=== PATIENT | male | born 2000 | race Two or more races ===

== ENCOUNTER 2025-09-20 12:47 | Emergency (ER) | payer SELFPAY ==
--- NOTE | 2025-09-20 13:17 | EDNOTE_ITS ---
ED General RME/HPI General Chief complaint: Syncope / Near Syncope Stated complaint: BLACKING OUT TODAY, DIAPHORETIC Time Seen by Provider: 09/20/25 13:10 Arrival date/time: 09/20/25 12:47 CC: Nausea, blacking out HPI patient had 2 blackouts in the last 6 hours, but family member was stating the patient was feeling not right , yesterday. Patient has an episode of blacking out 1 month ago currently patient is awake alert [place] denies any nausea lightheadedness or dizziness. Patient was sat up in the bed during the interview heart rate increased from 70-90. Patient states he has not been drinking much in the last 3 days also has had a mild amount of diarrhea. No other family members ill. Patient denies chest pain shortness of breath blurred vision seeing spots or double vision nausea vomiting or diarrhea at this particular time. Related Data Previous Rx's ?Medication ?Instructions ?Recorded erythromycin 5 mg/gram (0.5 %) eye 0.5 inch ophthalmic (eye) BID 7 03/21/20 ointment days #3.5 grams Allergies Allergy/AdvReac Type Severity Reaction Status Date / Time No Known Allergies Allergy Verified 09/20/25 12:49 Review of Systems Review of Systems Narrative Review of Systems: GEN: No fever, no chills, no weight loss EYES: No discharge, no visual changes, no pain HEENT: No ear pain, no congestion, no sore throat PULM: No shortness of breath, no cough, no congestion CV: No chest pain, no dyspnea on exertion, no palpitations GI: No nausea, no vomiting, no diarrhea, no pain, no constipation : No frequency, no urgency, no dysuria MUSC/SKEL: No joint pain, no back pain SKIN: No rash PSYCH: No hallucinations, no depression HEME/LYMPH: No easy bleeding or bruising tendencies NEURO: No weakness, no headache Past Medical History Past Medical History CARDIAC: Negative Congestive Heart Failure RESPIRATORY: Negative Chronic Obstructive Pulmonary Disease (COPD) GENITOURINARY: Negative Renal Disease ENDOCRINE: Negative Diabetes Mellitus Type 1 or Diabetes Mellitus Type 2 Surgical History SURGICAL: Positive Nose Surgery Social History SMOKING STATUS: Never smoker ED Exam Narrative Physical exam: [General: Not in any acute distress Head normocephalic HEENT: Eyes: Pupils are PERRLA EOMs are intact no nystagmus mouth pink moist membranes uvula is midline swallow symmetrical phonation is normal all of the subsystems of HEENT are within acceptable limits Neck is supple nontender Chest equal chest rise nontender to palpation Respiratory: Clear to auscultation no wheezes crackles or rubs CV: Rate rhythm is regular no murmurs rubs or clicks Abdomen is soft nontender no masses positive bowel sounds all 4 quadrants Back: No CVA tenderness no spinous process tenderness from cervical spine thoracic and lumbar spine Skin: Intact no petechiae rash induration ulceration or crepitus Extremities: Moving all extremity against resistance cap refill less than 2 seconds neurosensory intact Neuro: Awake alert oriented x3 Glascow coma 15 no focal deficits] Course Course Course Narrative: At 1427, the patient is at 2 L of LR, patient is awake alert oriented is no deterioration in neurologic status no syncopal events will discharge the patient home. Quality Measures none Orders Category Date Time Status Saline [Insert IV] NOW Care 09/20/25 13:16 Active CBC Stat Lab 09/20/25 13:35 Completed CMP [Comprehensive Metabolic Panel] Stat Lab 09/20/25 13:35 Completed Drug Screen,Urine Stat Lab 09/20/25 13:16 Ordered Urinalysis Stat Lab 09/20/25 13:16 Ordered Ringers Lactated 1000 ml [Lactated Ringers] 1,000 ml Med 09/20/25 13:16 Discontinued IV 999 mls/hr Ringers Lactated 1000 ml [Lactated Ringers] 1,000 ml Med 09/20/25 13:16 Discontinued IV 999 mls/hr Discharge Plan Plan Patient Disposition: HOME (Self Care) Patient condition on transfer: Stable Prescriptions/Referrals Prescriptions/Med Rec: No Action erythromycin 5 mg/gram (0.5 %) ointment 0.5 inch OPHTHALMIC BID 7 Days Qty: 3.5 1RF Rx Instructions: 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 Problem List Clinical Impression: Syncope Patient/Caregiver Discharge Instructions Education Materials: ED Fainting, Uncertain Cause Additional Instructions: Drink plenty of fluids follow-up with your primary care doctor if there is worsening of symptoms return the emergency room for reevaluation. Print Language: Latvian Stand Alone Forms: Padmini Award Info., Work/School Release, Patient Portal Info Letter EMELINA/RICH Supervising Physician EMELINA/RICH Supervising Physician: Will Moe ENP [facility] Clinical Information Provided by: patient Medical Records reviewed [facility] Meds/Rx considered, not ordered None Labs/Rad/Tests considered, not ordered None Chronic Illness/Social Conditions which may negatively complicate care or outcome(s)-explain: None or not applicable EKG Interpretation EKG #1: EKG Interpretation: EKG performed at 1252 shows a ventricular rate of 5 6. Normal 169 QRS of 134 QTc of 388 this is sinus bradycardia. Medication Administration(s) Medication Administration History Discontinued Medications Lactated Ringer's (Lactated Ringers) 1,000 mls @ 999 mls/hr IV .Q1H1M ONE Stop: 09/20/25 14:16 Last Admin: 09/20/25 13:34 Dose: 999 mls/hr Documented By: GINA Lactated Ringer's (Lactated Ringers) 1,000 mls @ 999 mls/hr IV .Q1H1M ONE Stop: 09/20/25 14:16 Last Admin: 09/20/25 13:36 Dose: 999 mls/hr Documented By: GINA
[2025-09-20] MEDS: RINGERS LACTATED 1000 ML 1,000 ML 999 ML IV ×2 (13:34→13:36)
[2025-09-20 13:50] LABS: Basophils # (Auto) 0.0 Thou/mm3 (0.0-0.2); Basophils % (Auto) 0 % (0-2.5); Eosinophils # (Auto) 0.0 Thou/mm3 (0.0-0.5); Eosinophils % (Auto) 0 % (0-10); Hematocrit 50.2 % (41.0-53.0); Hemoglobin 17.3 g/dL (13.5-16.0); Immature Granulocytes Auto 0.06 Thou/mm3 (0.00-0.00); Lymphocytes # (Auto) 0.4 Thou/mm3 (1.0-4.8); Lymphocytes % (Auto) 4 % (10-50); Mean Corpuscular HGB Conc 34.5 g/dl (31.0-37.0); Mean Corpuscular Hemoglobin 29.8 pg (25.0-35.0); Mean Corpuscular Volume 86 fL (80-100); Monocytes # (Auto) 0.6 Thou/mm3 (0.0-0.8); Monocytes % (Auto) 6 % (0-12); Neutrophils # (Auto) 9.9 Thou/mm3 (1.8-7.7); Neutrophils % (Auto) 90 % (37-80); Nucleated Red Blood Cell # 0.00 Thou/mm3 (0.00-0.00); Nucleated Red Blood Cell % 0 /100 WBC (0); Platelet Count 250 Thou/mm3 (140-440); RDW Standard Deviation 39.7 fL (35.1-43.9); Red Blood Count 5.81 Miln/mm3 (4.50-5.90); White Blood Count 11.0 Thou/mm3 (3.8-10.6)
[2025-09-20 14:08] LABS: Alanine Aminotransferase 32 U/L (10-49); Albumin, Serum 5.4 gm/dL (3.5-5.0); Albumin/Globulin Ratio 1.9 (1.2-2.2); Alkaline Phosphatase 114 U/L (46-116); Anion Gap 13 (7-16); Aspartate Amino Transferase 31 U/L (0-34); BUN/Creatinine Ratio 10 Ratio (12-20); Bilirubin,Total 0.7 mg/dL (0.3-1.2); Blood Urea Nitrogen 10 mg/dL (9-23); Calcium 9.9 mg/dL (8.3-10.6); Calcium (Corrected) 9.9 mg/dL (8.5-10.1); Carbon Dioxide 22.0 mMol/L (20.0-31.0); Chloride 108 mMol/L (98-107); Creatinine (Component) 1.0 mg/dL (0.6-1.3); Estimated Creatinine Clearance 159.4 mL/min (>60); Globulin 2.8 gm/dL (2.3-3.5); Glucose 118 mg/dL (74-106); Osmolality,Calculated 284 (275-295); Potassium 3.7 mMol/L (3.4-5.1); Sodium 143 mMol/L (136-145); Total Protein 8.2 gm/dL (5.7-8.2); eGFR > 60 See Note
[2025-09-20 14:35] VITALS: BP 137/82; PULSE 67; RESP 21; TEMP 36.8; O2SAT 95
== END 2025-09-20 14:40 | disposition home or self-care (01) ==
PROVIDERS: Registered Nurse General Practice; Emergency Provider Emergency Medicine
DX: R55 Syncope and collapse (principal)
CPT/HCPCS: 36415; 80053; 80307; 81001; 85025; 96360; 99282; J7120